=== PATIENT | male | born 1965 | race Caucasian/White ===

== ENCOUNTER 2018-11-11 17:31 | Emergency (ER) | payer OTHER, SELFPAY ==
[2018-11-11 17:37] VITALS: BP 117/72; PULSE 110; RESP 16; TEMP 36.6; O2SAT 99; BMI 34.5
--- NOTE | 2018-11-11 17:41 | DI.RAD.S_ITS ---
PROCEDURE: XR KNEE RT 3V INDICATIONS: right knee pain TECHNIQUE: 3 views of the knee were acquired. COMPARISON: None. FINDINGS: Bones: Questionable ill-defined lucent lesions are present within the medial aspect of the distal femur. No acute fracture dislocation. Soft tissues: There is a small knee joint effusion. IMPRESSION: 1. Questionable ill-defined lucent lesions of the distal femur. If further characterization is warranted, MRI of this region could be used. 2. Small knee joint effusion. Dictated by: Rhonda Lakhani M.D. on 11/11/2018 at 18:01 Approved by: Rhonda Lakhani M.D. on 11/11/2018 at 18:02
[2018-11-11 19:32] VITALS: BP 119/63; PULSE 96; RESP 18; O2SAT 99
--- NOTE | 2018-11-11 19:46 | ED_ITS ---
HPI - Fall General Chief Complaint: Fall Stated Complaint: FELL LAST NIGHT Time Seen by Provider: 11/11/18 19:45 Source: patient Mode of arrival: wheelchair Limitations: no limitations History of Present Illness HPI Narrative: Patient is a 53-year-old male with history of Hodgkin's lymphoma on chemotherapy who presents with right knee pain ongoing for number of months. Out of the shower his right knee gave out on him he has been unable to bear weight on it. He does have walker or cane and wheelchair to get around. He wears a brace on both knees all the time. He is typically able to bear weight on his right leg however not after it gave out on him. He has no numbness or tingling. He called his oncology PA who instructed him to come to the ER and get x-rays of his right hip and right knee. 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 His hip has not been bothering him. He denies any other injury while falling no head injury no loss of consciousness no neck pain MD complaint: fall Related Data Allergies Allergy/AdvReac Type Severity Reaction Status Date / Time metformin Allergy Verified 11/11/18 17:37 Review of Systems Review of Systems Narrative: GENERAL: Denies chills,fever HEENT: Denies throat pain RESPIRATORY: Denies dyspnea, cough, wheezing CARDIOVASCULAR: Denies chest pain, palpitations GASTROINTESTINAL: Denies nausea, vomiting MUSCULOSKELETAL: Denies extremity pain, injury SKIN: No rash, no laceration, no pruritus NEUROLOGIC: Denies weakness, dizziness, headache, numbness 8 point review of systems is negative except for those stated above and HPI Exam Initial Vital Signs Initial Vital Signs: Vital Signs Temperature 97.8 F 11/11/18 17:37 Pulse Rate 110 H 11/11/18 17:37 Respiratory Rate 16 11/11/18 17:37 Blood Pressure 117/72 11/11/18 17:37 Pulse Oximetry 99 11/11/18 17:37 GENERAL: Well-appearing, well-nourished and in no acute distress. CARDIOVASCULAR: peripheral pulses in tact, cap refill <2 sec RESPIRATORY: No respiratory distress, speaks in full sentences without difficulty EXTREMITIES: Normal range of motion, no clubbing or edema. Neurovascularly intact Right knee has some mild swelling no erythema pain with any sort of movement NEUROLOGICAL: Cranial nerves II through XII grossly intact. Normal gait and speech. SKIN: Warm, dry, no petechiae, no rashes or lesions. [facility] Medical History Hodgkins lymphoma (Acute) Social History Smoking Status: Unknown if ever smoked Social History Smoking Status: Unknown if ever smoked Course Orders Ordered: ED Orders 11/11/18 17:41 XR knee RT 3V Stat Vital Signs Vital signs: Vital Signs - 8 hr 11/11/18 19:32 Pulse Rate 96 H Respiratory Rate 18 Blood Pressure [Right Arm] 119/63 Pulse Oximetry 99 MDM - Fall Imaging Data knee XR: Radiologist's impression: PROCEDURE: XR KNEE RT 3V INDICATIONS: right knee pain TECHNIQUE: 3 views of the knee were acquired. COMPARISON: None. FINDINGS: Bones: Questionable ill-defined lucent lesions are present within the medial aspect of the distal femur. No acute fracture dislocation. Soft tissues: There is a small knee joint effusion. IMPRESSION: 1. Questionable ill-defined lucent lesions of the distal femur. If further characterization is warranted, MRI of this region could be used. 2. Small knee joint effusion. Dictated by: Rhonda Lakhani M.D. on 11/11/2018 at 18:01 MDM Narrative Medical decision making narrative: The patient was quite agitated after waiting so long when I saw him. His x-ray shows no fracture. He states that he was also supposed to get an x-ray of his hip for his oncology. However states that he has been having ongoing hip issues which have not really changed. There is some lucencies noted in the x-ray I recommended an outpatient MRI. No indication for emergent MRI. Patient has multiple pain medications at home manage by Oncology. I recommended he call them and asked them how to increase it. He has a walker and cane at home he also has a wheelchair. Discharge Plan Departure Patient Disposition: Home Clinical Impression: Injury of knee, right Qualifiers: Encounter type: initial encounter Qualified Code(s): S89.91XA - Unspecified injury of right lower leg, initial encounter Discharge Date/Time: 11/11/18 20:00 Instructions: DI for Knee Sprain Activity Restrictions/Additional Instructions: *You have been diagnosed with right knee strain and injury *What to do: X-ray does show some lucent lesions on distal femur. You will need an outpatient MRI. This is not emergent at this time. Elevate, ice *Continue to take medications as directed Continue pain medications as previously prescribed if he should need increase or change in pain management please talk to your primary providers *Follow up with your primary care provider in 2-3 days *Return to ER if you should have redness fevers weakness or any new, worsening or concerning symptoms
--- NOTE | 2018-11-11 20:07 | PC.NURSE ---
He had pain meds at home and a cane if needed.Will follow up with his provider for further evaluation.
== END 2018-11-11 20:00 | disposition home or self-care (01) ==
PROVIDERS: Emergency Provider Emergency Medicine
DX: S89.91XA Unspecified injury of right lower leg, initial encounter (principal)
CPT/HCPCS: 73562; 99282; 99283